=== PATIENT | female | born 1970 | race African-American/Black ===

== ENCOUNTER 2018-10-03 08:53 | Emergency (ER) | payer MEDICAID ==
[~2018-10-03] VITALS: Ht 185.4 cm; Wt 122.0 kg
[~2018-10-03 08:53] MED LIST: ACET-2178
[2018-10-03] MEDS ORDERED: KETOROLAC 60MG/2ML VIAL IM ONE (09:45)
[2018-10-03] MEDS ORDERED: ENALAPRIL 5MG TABLET PO SCH (10:30)
[2018-10-03 11:17] VITALS: BP 205/115
== END 2018-10-03 11:18 | disposition home or self-care (01) ==
LOC: ER 09:09
DX: S39.012A Strain of muscle, fascia and tendon of lower back, initial encounter (principal); S16.1XXA Strain of muscle, fascia and tendon at neck level, initial encounter; V43.52XA Car driver injured in collision with other type car in traffic accident, initial encounter; Y93.9 Activity, unspecified; Y92.410 Unspecified street and highway as the place of occurrence of the external cause; Z90.49 Acquired absence of other specified parts of digestive tract
CPT/HCPCS: 81025; 96372; 99283; J1885

== ENCOUNTER 2019-02-17 22:11 | Emergency (ER) | payer MEDICAID ==
[~2019-02-17] VITALS: Ht 185.4 cm; Wt 121.0 kg
[2019-02-17 22:50] LABS: BASOPHILS % 0.3 % (0.0-2.0); EOSINOPHILS % 2.3 % (0.0-5.0); HEMATOCRIT. 39.7 % (36.0-48.0); HEMOGLOBIN. 13.2 g/dL (12.0-16.0); LYMPHOCYTES % 30.2 % (20.0-50.0); MEAN CORPUSCULAR HEMOGLOBIN 28.1 pg (28.0-32.0); MEAN CORPUSCULAR VOLUME 84.3 fL (81.0-99.0); MEAN PLATELET VOLUME 9.9 fl (7.4-10.4); MONOCYTES % 5.9 % (2.0-8.0); NEUTROPHILS % 61.3 % (40.0-76.0); PLATELET 251 x1000/uL (130-400); RED BLOOD CELL COUNT 4.71 mill/uL (4.2-5.4); RED CELL DISTRIBUTION WIDTH 15.1 % (11.6-14.6)
[2019-02-17 22:59] LABS: CHLORIDE 106 mEq/L (98-107)
[2019-02-18 04:17] VITALS: BP 137/66
== END 2019-02-18 04:19 | disposition home or self-care (01) ==
LOC: ER 23:02
DX: R53.1 Weakness (principal); I10 Essential (primary) hypertension
CPT/HCPCS: 36415; 71045; 80053; 81025; 83880; 84484; 85025; 93005; 99284; Z7610

== ENCOUNTER 2023-09-20 03:40 | Emergency (ER) | payer MEDICAID, OTHER ==
[~2023-09-20] VITALS: Ht 185.4 cm; Wt 127.0 kg
[~2023-09-20 03:40] MED LIST changes: -ACET-2178; +TOPUD
[2023-09-20 03:42] VITALS: TEMP 98; O2SAT 98
[2023-09-20] MEDS ORDERED: HYDR-4001 MT (05:27)
[2023-09-20] MEDS: HYDROCODONE/ACETAMINOPHEN 5/325MG TABLET PO ONE (05:51)
[2023-09-20 06:06] VITALS: BP 123/72; PULSE 67; RESP 18
== END 2023-09-20 06:11 | disposition home or self-care (01) ==
LOC: ER 03:40
DX: M79.674 Pain in right toe(s) (principal); I10 Essential (primary) hypertension
CPT/HCPCS: 73660; 99285; Z7610; 99283